=== PATIENT | male | born 1980 | race African-American/Black ===

== ENCOUNTER 2023-10-21 13:11 | Emergency (ER) | payer OTHER, SELFPAY ==
[2023-10-21 13:15] VITALS: BP 186/105; BMI 31.3
--- NOTE | 2023-10-21 13:25 | ED.GENMED ---
History of Present Illness
General
Chief Complaint: Headache
Source: patient
Exam Limitations: none
Time Seen by Provider: 10/21/23 13:22
Nursing documentation reviewed up to this point in time: agreed with
Travel History
Have you had any contact with someone who has COVID-19?: No
Do you have any symptoms of coronavirus? Fever > 100 degrees, chills, cough, shortness of breath, sore throat, loss of taste or smell, muscle aches, or headache?: No
History of Present Illness
History of Present Illness:
43 yo male prisoner from court after his sentence was made, states while in court at 9 a.m. developed mid non radiating stabbing, pressure chest pain with some SOB for about an hour. No further episodes. He also has generalized headache. He also
states his blood pressure is high. He states he is taking his medications as ordered for past 3 months at the [facility]. Denies diaphoreses, palpitations, weakness or dizziness. Denies change in vision, denies n/v/d/c. Denies abdominal pain.
Past History
Past History
ED Past Medical History: HTN
Social History
Tobacco: Non-smoker
Alcohol: None
Drug: Other (has used cocaine, marijuana, )
Living: [facility]
Review of Systems
Review of Systems
Allergies reviewed?: Yes
All Other Systems: ROS reviewed and negative except as documented in HPI and ROS
Constitutional: Denies fever or fatigue
Respiratory: Denies trouble breathing
Cardiac: Reports chest pain; Denies diaphoresis or palpitations
ABD/GI: Denies abdominal pain or nausea
: Reports no symptoms
Musculoskeletal: Reports back pain (mild right lower back pain); Denies neck pain
Skin: Reports no symptoms
Neurological: Reports no symptoms
Phy Exam
Physical Exam
Physical Exam:
GENERAL: No acute distress. A&Ox3.
CONSTITUTIONAL: Afebrile.
EYES: clear, conjunctivae normal
ENMT: moist mucus membranes, Pharynx nl
RESPIRATORY: Regular respirations, nonlabored, lungs clear.
CARDIOVASCULAR: Regular rate and rhythm, no murmurs, no rubs.
GI: Soft, nontender, normal BS
MUSCULOSKELETAL: Moves with ease. Well perfused.
SKIN: Warm, dry, normal
PSYCH: Normal mood and affect. Well kept, interactive and appropriate
NEUROLOGIC: Awake, alert and oriented. No focal neurological deficits
Course
Orders/Labs/Results
Orders:
Orders
10/21/23 13:14
Electrocardiogram (*1) Urgent
Reason for Study: Chest Pain
Cardiac Monitoring- Treatment ONCE
EKG- Treatment ONCE
O2 Therapy [RESP] Urgent
Titrate/Wean O2 to maintain O2 sat greater than (%): 90
Special Instructions: Maintain sats >/=90%
Pulse Ox/spot Check [RESP] Urgent
Quantity: 1
Special Instructions: ON ROOM AIR
10/21/23 13:22
Complete Blood Count/With Diff Urgent
Comprehensive Metabolic Panel Urgent
Troponin I Urgent
10/21/23 14:28
Acetaminophen [Tylenol] 1,000 mg PO NOW STA
Abnormal Lab Results
10/21/23
13:22
MCV 79.1 L fL
(80.0-94.0)
MCH 26.6 L pg
(27.0-31.0)
Glucose 122 H mg/dl
(70-99)
Total Bilirubin 1.4 H mg/dl
(0.2-1.3)
AST 104 H U/L
(17-59)
ALT 82 H U/L
(0-50)
Total Protein 8.5 H g/dl
(6.3-8.2)
10/21/23 13:22
10/21/23 13:22
Vital Signs
Initial and Last Documented VS:
Initial Vital Signs
Temp Pulse Resp BP Pulse Ox
98.8 F 89 16 186/105 99
10/21/23 13:15 10/21/23 13:15 10/21/23 13:15 10/21/23 13:15 10/21/23 13:15
Last Documented Vital Signs
Temp Pulse Resp BP Pulse Ox
98.8 F 85 17 173/100 98
10/21/23 13:15 10/21/23 14:30 10/21/23 14:30 10/21/23 14:00 10/21/23 14:30
MDM/Problems Addressed
Differential Diagnosis Includes:
SC, ACS, hypertensive urgency
anxiety
MDM/Problems Addressed:
43 yo male prisoner w hx HTN from court after his sentence was made, states while in court at 9 a.m. developed mid non radiating stabbing, pressure chest pain for about an hour with some SOB. No further episodes. He also has generalized headache.
He also states his blood pressure is high. He states he is taking his medications as ordered for past 3 months at the [facility].
Denies diaphoreses, palpitations, weakness or dizziness. Denies change in vision, denies n/v/d/c. Denies abdominal pain.
Afebrile, NAD
EKG: NSR, L axis deviation, no change from previous
BP 175/98, improving
2:00 p.m.
CBC unremarkable
CMP: normal kidney function, mildly elevated liver enzymes, abdomen benign, will have pt recheck in 3-4 weeks
Troponin neg
Had normal CXR 10 months ago, with neg workup today, lungs CTA, no need to repeat CXR
No sign of hypertensive emergency
No risk for PE, no tachycardia, hypoxemia
Pt stable for discharge.
Plan: Have liver enzymes repeated in 3-4 weeks.
If by tomorrow, under calmer circumstances, if blood pressure remains >170 systolic increase Labetolol to 200 mg p.m. and 100 mg a.m. and follow up with outbound sales representative within the next 2-3 weeks.
Chronic conditions affecting care: HTN
*EKG
Interpreted by ED Provider?: Yes
EKG Intrepretation Date: 10/21/23
Rate: normal
Rhythm: sinus
[place]: left axis deviation
Interval: normal interval
QRS Pattern: normal QRS
Ischemia: no ischemia
*Critical Care Note
Total Time (30-74mins, 75-104mins- exclusive of procedures): Not Applicable
ED Attending Note
-
Portions of this chart may have been created with voice recognition software.� Occasional wrong word or��sound alike� substitutions may have occurred due to the inherent limitations of voice recognition software.
Discharge Plan
Departure
Patient Disposition: Home (Routine Discharge)
Date of Disposition: 10/21/23
Time of Disposition: 14:19
Patient with high blood pressure during this ER visit?: Yes
Condition: Good
Discharge Problem:
Accelerated essential hypertension
Prescriptions:
No Action
hydroxyzine pamoate 50 mg Capsule
50 mg PO HSPRN PRN (Reason: sleep)
Theragen Tablet
1 tab PO DAILY
chlorthalidone 25 mg Tablet
25 mg PO HS
aspirin 81 mg Tablet,Delayed Release (Dr/Ec)
81 mg PO HS
amlodipine [Norvasc] 10 mg Tablet
10 mg PO HS
hydralazine [Apresoline] 50 mg Tablet
50 mg PO HS
labetalol [Normodyne] 100 mg Tablet
100 mg PO BID
lisinopril [Zestril] 40 mg Tablet
40 mg PO HS
rosuvastatin [Crestor] 10 mg Tablet
10 mg PO HS
Referrals:
Addison Redding MD [Active] - Next open appointment
Ezekiel Hunt MD [Active] - Next open appointment
UNKNOWN - PT DOES,NOT KNOW [Family Provider] -
Activity Restrictions/Additional Instructions:
As we discussed, your workup here today shows nothing worrisome
Your liver enzymes are mildly elevated and should be rechecked in 3-4 weeks
Take your blood pressure in the next 2 days, under calmer circumstances, if blood pressure remains >170 systolic increase Labetolol to 200 mg p.m. and 100 mg a.m. and follow up with outbound sales representative within the next 2-4 weeks.
Pt states he's been told he should follow up with a [employer] for and abnormal kidney finding on a scan he had at another hospital and for his resistant Hypertension.
I have provided the name of a [employer] to use
Interventions
Interventions:
*Risk Screen - Suicide Last Done: 10/21/23 13:15
*General Assessment Last Done: 10/21/23 13:15
*Neglect/Abuse Screening Last Done: 10/21/23 13:15
ED- Fall Risk Assessment Last Done: 10/21/23 13:56
*ED COVID-19 Vaccine History Last Done: 10/21/23 13:15
*Nursing Disposition Last Done: 10/21/23 14:40
ED- Neurological Assessment Last Done: 10/21/23 13:56
Discharge Date and Time
Discharge Date/Time: 10/21/23 14:57
Print Language: GERMAN
[2023-10-21 13:30] LABS: % Basophils 0.7 % (0-2); % Eosinophils 5.2 % (0-6); % Immature Granulocytes 0.2 % (0-0.5); % Lymphocytes 28.8 % (20.5-51.1); % Neutrophils 57.1 % (42.2-75.2); Absolute Eosinophils 0.3 10^3/uL (0-0.7); Absolute Lymphocytes 1.6 10^3/uL (1.2-3.4); Absolute Monocytes 0.5 10^3/uL (0.1-0.6); Absolute Neutrophils 3.2 10^3/uL (1.4-6.5); Hematocrit 39.8 % (39.0-52.0); Hemoglobin 13.4 g/dL (13.0-18.0); Mean Corp Hgb Conc. 33.7 g/dL (33.0-37.0); Mean Corpuscular Hgb 26.6 pg (27.0-31.0); Mean Corpuscular Volume 79.1 fL (80.0-94.0); Mean Platelet Volume 9.2 fL (7.4-10.4); Nucleated Red Blood Cells % 0 % (-); Platelet Count 192 10^3/uL (130-400); Red Blood Cell Count 5.03 10^6/uL (4.70-6.10); Red Cell Dist. Width 13.2 % (11.5-14.5); White Blood Cell Count 5.6 10^3/uL (4.8-10.8)
[2023-10-21 13:43] LABS: ALT (SGPT) 82 U/L (0-50); AST (SGOT) 104 U/L (17-59); Alkaline Phosphatase 120 U/L (38-126); Blood Urea Nitrogen 14 mg/dl (9-20); Calcium 10.1 mg/dl (8.4-10.2); Carbon Dioxide 29 mmol/L (22-30); Chloride 100 mmol/L (98-107); Estimated Creatinine Clearance > 125 ml/min; Glucose 122 mg/dl (70-99); Potassium 3.8 mmol/L (3.5-5.1); Sodium 140 mmol/L (135-145); Total Bilirubin 1.4 mg/dl (0.2-1.3); Total Protein 8.5 g/dl (6.3-8.2); eGFR > 60.00
[2023-10-21 13:49] VITALS: BP 175/98
[2023-10-21 13:53] LABS: Troponin I 0.014 ng/ml
[2023-10-21 14:00] VITALS: BP 173/100
[2023-10-21] MEDS: TYLENOL 1000 MG PO (14:31)
== END 2023-10-21 14:57 | disposition home or self-care (01) ==
LOC: EMR 13:11
PROVIDERS: EMERGENCY PHYSICIAN Emergency Medicine
DX: R07.89 Other chest pain (principal); I10 Essential (primary) hypertension
CPT/HCPCS: 99284; 80053; 84484; 85025; 93005